=== PATIENT | male | born 1970 | race Caucasian/White ===

== ENCOUNTER 2025-05-05 18:27 | Emergency (ER) | payer MEDICAID ==
[~2025-05-05] VITALS: Ht 180.3 cm; Wt 72.7 kg
[2025-05-05 18:28] VITALS: O2SAT 99
[2025-05-05 18:42] VITALS: BP 135/69; PULSE 102; RESP 14; TEMP 36.9; O2SAT 100
[2025-05-05] MEDS: IBUPROFEN 400MG TABLET PO ONE (20:20)
[2025-05-05] MEDS ORDERED: BO1 TP (20:51)
== END 2025-05-05 21:18 | disposition home or self-care (01) ==
LOC: ER 18:27
DX: S10.86XA Insect bite of other specified part of neck, initial encounter (principal); W57.XXXA Bitten or stung by nonvenomous insect and other nonvenomous arthropods, initial encounter; Y93.89 Activity, other specified; Y92.89 Other specified places as the place of occurrence of the external cause; Y99.8 Other external cause status
CPT/HCPCS: 99282